=== PATIENT | female | born 1955 | race African-American/Black ===

== ENCOUNTER → 2016-12-20 | Outpatient (CLI) | payer OTHER ==
[~2016-12-20] MED LIST: BLOOD PRESSURE PILL
--- NOTE | ~2016-12-20 | MY11 ---
[facility] A Service of [facility] / [facility] RADIOLOGY TEXT RESULTS PATIENT: COREY MARCUM LOCATION: [facility] : 59 UNIT #: [id number] AGE: [address]: An Alexander APRN SEX: F ORDER DR: [id number] [facility]. [place], [place] [address] [id number] O MR#: [id number] Acc #: [id number] NAME: COREY MARCUM : 1955 SEX: F STUDY DATE/TIME: 12/20/2016 9:57 UNIT: [facility] ROOM: STUDY DESCRIPTION: MY Mammogram Screening Dig Sunny Attending Physician: An Alexander A.P.R.N. Ordering Physician: An Alexander A.P.R.N. Primary Care Physician: An Alexander A.P.R.N. MEDICAL IMAGING REPORT This report is preliminary unless electronic signature is present EXAM Bilateral Digital Screening Mammogram with CAD 12/20/2016 INDICATION Breast cancer screening. 61-year-old asymptomatic female who reports a sister with post menopausal breast cancer. COMPARISON 12/30/2015, 12/22/2014, 02/03/2014, 01/18/2014, 12/19/2012, 12/19/2011, 12/12/2010 FINDINGS There are scattered fibroglandular tissues. No suspicious findings are present. IMPRESSION No mammographic evidence of malignancy. Annual screening mammography and clinical breast exam are recommended. A result letter will be sent to the patient. Patients over the age of 40 are entered into a reminder system with target due date for the next mammogram. BIRADS: 1 Negative Dictated by... Newton Paz M.D. THIS IS AN ELECTRONICALLY VERIFIED REPORT Newton Paz M.D. at 12/23/2016 6:42 PM Ellie TD: 12/20/2016 16:02 [facility] A Service of [facility] / [facility] RADIOLOGY TEXT RESULTS PATIENT: COREY MARCUM LOCATION: [facility] #: [id number] : 59 UNIT #: [id number] AGE: [address]: An Alexander APRN SEX: F ORDER DR: JOB #: [id number] MEDICAL IMAGING REPORT COPY
== END | disposition home or self-care (01) ==
LOC: CWCC 09:17
DX: Z12.31 Encounter for screening mammogram for malignant neoplasm of breast (principal); Z80.3 Family history of malignant neoplasm of breast
CPT/HCPCS: G0202